=== PATIENT | female | born 1980 | race Caucasian/White ===

== ENCOUNTER 2016-05-07 19:14 | Emergency (ER) | payer SELFPAY | END 2016-05-07 22:00 | disposition home or self-care (01) | LOC: ER1 19:14 | DX: S70.01XA Contusion of right hip, initial encounter (principal); F17.210 Nicotine dependence, cigarettes, uncomplicated; Z91.040 Latex allergy status; W22.8XXA Striking against or struck by other objects, initial encounter; Y92.512 Supermarket, store or market as the place of occurrence of the external cause | CPT/HCPCS: 73502; 99283 ==

== ENCOUNTER 2016-06-27 12:00 | Emergency (ER) | payer OTHER | END 2016-06-27 13:05 | disposition home or self-care (01) | LOC: ER1 12:00 | DX: M54.41 Lumbago with sciatica, right side (principal); F17.290 Nicotine dependence, other tobacco product, uncomplicated; Z88.6 Allergy status to analgesic agent; Z91.040 Latex allergy status; Z79.891 Long term (current) use of opiate analgesic; Z79.899 Other long term (current) drug therapy | CPT/HCPCS: 96372; 99283; J1100 ==

== ENCOUNTER 2016-10-22 18:03 | Emergency (ER) | payer OTHER | END 2016-10-22 21:18 | disposition home or self-care (01) | LOC: ER1 18:03 | DX: S70.01XA Contusion of right hip, initial encounter (principal); S30.0XXA Contusion of lower back and pelvis, initial encounter; S39.012A Strain of muscle, fascia and tendon of lower back, initial encounter; G89.29 Other chronic pain; F17.290 Nicotine dependence, other tobacco product, uncomplicated; Z88.6 Allergy status to analgesic agent; Z91.040 Latex allergy status; W17.89XA Other fall from one level to another, initial encounter | CPT/HCPCS: 72131; 72192; 96374; 99284; J1885 ==

== ENCOUNTER 2020-04-22 13:54 | Emergency (ER) | payer OTHER ==
[~2020-04-22 13:54] MED LIST: AMOXICILLIN500 M1 PO; AUGMENTIN 875-1 EACH PO; BENADRYL 25MG C25 MG PO; BUSPAR 10MG10 MG PO; CEFUROXIME250 MG PO; CLARITIN10 M2 PO; CYCLOBENZAPRINE10 MG PO; IBUPROFEN600 MG PO; LIORESAL TAB 1010 MG PO; MEDROL DOSEPAK 24 MG PO; MEDROL4 MG PO; MOBIC15 MG PO; NAPROSYN500 MG PO; NORETHINDRONE AC5 MG PO; ROBAXIN-750750 MG PO; ULTRAM50 MG PO; VENLAFAXINE HCL75 MG PO; ZOFRAN4 MG PO
[2020-04-22] MEDS ORDERED: ENDOCET 5-3251 EACH PO (16:33)
== END 2020-04-22 16:43 | disposition home or self-care (01) ==
LOC: ER1 13:54
DX: M54.16 Radiculopathy, lumbar region (principal); F17.290 Nicotine dependence, other tobacco product, uncomplicated; Z91.040 Latex allergy status; Z90.710 Acquired absence of both cervix and uterus
CPT/HCPCS: 96372; 99283; J1885

== ENCOUNTER 2020-08-21 14:25 | Emergency (ER) | payer OTHER ==
[~2020-08-21 14:25] MED LIST changes: +ENDOCET 5-3251 EACH PO
[2020-08-21] MEDS ORDERED: CYCLOBENZAPRINE10 MG PO (15:54)
== END 2020-08-21 16:32 | disposition home or self-care (01) ==
LOC: ER1 14:25
DX: S39.012A Strain of muscle, fascia and tendon of lower back, initial encounter (principal); S16.1XXA Strain of muscle, fascia and tendon at neck level, initial encounter; S40.812A Abrasion of left upper arm, initial encounter; R51.9 Headache, unspecified; W17.89XA Other fall from one level to another, initial encounter
CPT/HCPCS: 70450; 72125; 72128; 72131; 99284

== ENCOUNTER 2020-11-02 14:22 | Emergency (ER) | payer OTHER ==
[2020-11-02 15:16] LABS: HEMOGLOBIN 12.9 gm/dl (12.3-15.3); RED BLOOD COUNT 3.95 M/UL (4.00-5.10); WHITE BLOOD COUNT 5.4 K/UL (4.5-11.0)
[2020-11-02 15:27] LABS: BUN/CREATININE RATIO 7 (0-10)
[2020-11-02] MEDS ORDERED: IBUPROFEN600 MG PO (17:54)
== END 2020-11-02 18:27 | disposition home or self-care (01) ==
LOC: ER1 14:22
PROVIDERS: Nurse Practitioner
DX: N20.0 Calculus of kidney (principal)
CPT/HCPCS: 72131; 80053; 85025; 85652; 86140; 96372; 99285; J1885; J2930